=== PATIENT | female | born 1985 | race Caucasian/White ===

== ENCOUNTER → 2018-05-31 | Outpatient (CLI) | payer MEDICARE, MEDICAID ==
[~2018-05-31] MED LIST: ACYC15OI7 TP; ACYC200O PO; CIPR-345 PO; FLU45SYR25 IM ONLY; FLU60SYR36 IM; FLUO-176 PO; FLUO-202 PO; NITR-105 PO; OMEP-114 PO; SIL20T TOP; TERB30CR11 TOP; [UNRECOGNIZED DRUG - CODE] MC; [UNRECOGNIZED DRUG - SUPPLY] MC
[2018-05-31 17:18] LABS: PLATELET COUNT, AUTOMATED 386 K/uL (150-450)
[2018-05-31 17:26] LABS: LDL CHOLESTEROL 109 mg/dl
== END ==
LOC: LAB 16:37
PROVIDERS: ATTEND Emergency Medicine
DX: Z00.00 Encounter for general adult medical examination without abnormal findings (principal)
CPT/HCPCS: 36415; 82040; 82247; 82310; 82374; 82435; 82465; 82565; 82947; 83718; 84075; 84132; 84155; 84295; 84450; 84460; 84478; 84520; 85025

== ENCOUNTER → 2018-08-07 | Outpatient (CLI) | payer MEDICARE, MEDICAID ==
[~2018-08-07] MED LIST changes: +ESCI20TA38 PO; +TOBR5DRO OP
[2018-08-07 12:33] LABS: PLATELET COUNT, AUTOMATED 355 K/uL (150-450)
--- NOTE | 2018-08-07 15:12 | RADIOLOGY IMAGING REPORT ---
FACILITY: [facility] [place] PATIENT NAME: Sarah Edmonds : 1985 MR: [id number] V: [id number] EXAM DATE: ORDERING PHYSICIAN: AYSE EDMONDS TECHNOLOGIST: Location: [facility] [place] Patient: Sarah Edmonds : 1985 Visit/Account:[id number] Date of Sevice: 08/07/2018 EXAMINATION: CT orbits with IV contrast HISTORY: Cellulitis. TECHNIQUE: Spiral scan was obtained through the orbits during injection of nonionic iodinated intra venous contrast. Sagittal and coronal reformatted images are also submitted. One of the following dose optimization techniques was utilized in the performance of this exam: Autom ated exposure control; adjustment of the mA and/or kV according to the patient's size; or use of an i terative reconstruction technique. Specific details can be referenced in the facility's radiology C T exam operational policy. CONTRAST: 75 mL of IV [id number] COMPARISON: None available. FINDINGS: RIGHT ORBIT: Globe: Negative. Optic nerve / Intraconal space: Negative. Extra-ocular muscles / Extraconal space: Negative. Lacrimal gland: Negative. Bones: Negative. LEFT ORBIT: Globe: Negative. Optic nerve / Intraconal space: Negative. Extra-ocular muscles / Extraconal space: Negative. Lacrimal gland: Negative. Bones: Negative. Visualized intracranial structures / sinuses / soft tissues: Mild mucosal thickening in the maxillar y sinuses. IMPRESSION: Mild mucosal thickening in the maxillary sinuses. Otherwise unremarkable contrast-enhance d CT of the orbits. Report Dictated By: Abhay Johnson MD at 08/07/2018 2:57 PM Report E-Signed By: Abhay Johnson MD at 08/07/2018 3:07 PM WSN:[id number]
== END ==
LOC: LAB 12:14
PROVIDERS: ATTEND Emergency Medicine
DX: L03.213 Periorbital cellulitis (principal)
CPT/HCPCS: 36415; 70481; 85025; 86140